=== PATIENT | female | born 1960 | race Caucasian/White ===

== ENCOUNTER 2017-06-14 10:03 | Outpatient (CLI) | payer BC | END 2017-06-14 10:04 | disposition home or self-care (01) | LOC: BICMAMMO 10:03 | PROVIDERS: ATTEND Chiropractor | DX: Z12.31 Encounter for screening mammogram for malignant neoplasm of breast (principal) | CPT/HCPCS: 77063; 77067 ==

== ENCOUNTER 2017-10-21 13:19 | Outpatient (CLI) | payer BC | END 2017-10-21 13:20 | disposition home or self-care (01) | LOC: BICMAMMO 13:19 | PROVIDERS: ATTEND Internal Medicine Rheumatology | DX: Z13.820 Encounter for screening for osteoporosis (principal); M85.80 Other specified disorders of bone density and structure, unspecified site | CPT/HCPCS: 77080 ==

== ENCOUNTER 2018-06-16 10:14 | Outpatient (CLI) | payer BC | END 2018-06-16 10:15 | disposition home or self-care (01) | LOC: BICMAMMO 10:14 | PROVIDERS: ATTEND Internal Medicine | DX: Z12.31 Encounter for screening mammogram for malignant neoplasm of breast (principal) | CPT/HCPCS: 77063; 77067 ==

== ENCOUNTER 2018-08-28 12:54 | Outpatient (CLI) | payer BC ==
--- NOTE | 2018-08-28 13:37 | ULT ---
THYROID ULTRASOUND: Indications: Neck swelling. FINDINGS: Both lobes of the thyroid are homogeneous and appear unremarkable. Both lobes are normal size. Right lobe measures 3.9 x 1.2 x 1.1 cm. Left lobe measures 2.9 x 0.8 x 0.9 cm. No mass or nodule seen. IMPRESSION: Unremarkable thyroid ultrasound. POS: [facility]
== END 2018-08-28 12:55 | disposition home or self-care (01) ==
LOC: BICULT 12:54
PROVIDERS: ATTEND Otolaryngology Plastic Surgery within the Head & Neck
DX: R22.1 Localized swelling, mass and lump, neck (principal)
CPT/HCPCS: 76536

== ENCOUNTER 2018-11-11 13:06 | Outpatient (CLI) | payer BC ==
--- NOTE | 2018-11-11 13:55 | BD ---
DEXA BONE DENSITY: HISTORY: A 58-year-old postmenopausal female. Screening study. COMPARISON: [facility] [place] 10/21/2017. FINDINGS: Lumbar Spine: BMD (g/cm2) L1 0.897 T-Score: -0.8, 0.4 L2 0.932 T-Score: -0.9, 0.6 L3 0.818 T-Score: -1.5, 0.0 L4 0.784 T-Score: -2.5,-1.0 L1-L4 0.877 T-Score: -1.5,-0.1 Femoral Neck: 0.615 T-Score: -2.1,-0.8 Total Femur: 0.975 T-Score: -1.2,-1.2 Impression: Lumbar spine: WHO classification osteopenia. Fracture risk is increased. Femoral neck: WHO classification is osteopenia. Ten-year fracture risk for a major osteoporotic frac ture is 80%. Ten-year fracture risk for hip fracture is 1.2%. POS: OFF
== END 2018-11-11 13:07 | disposition home or self-care (01) ==
LOC: BICMAMMO 13:06
PROVIDERS: ATTEND Internal Medicine Rheumatology
DX: M81.0 Age-related osteoporosis without current pathological fracture (principal); M85.89 Other specified disorders of bone density and structure, multiple sites
CPT/HCPCS: 77080

== ENCOUNTER 2019-07-16 08:55 | Outpatient (CLI) | payer BC ==
--- NOTE | 2019-07-16 12:42 | MMO ---
Bilateral MAMMO Bilat Screen [facility]. CLINICAL HISTORY: Patient is 59 years old and is seen for screening. The patient has no family history of breast cancer. The patient has no personal history of cancer. VIEWS: The views performed were: bilateral craniocaudal with tomosynthesis and bilateral mediolateral oblique with tomosynthesis. FILMS COMPARED: The present examination has been compared to prior imaging studies performed at [facility] on 01/11/2015, 01/17/2016, 06/14/2017 and 06/16/2018. This study has been interpreted with the assistance of computer-aided detection. MAMMOGRAM FINDINGS: The breasts are heterogeneously dense, which could obscure a lesion on mammography. There are no suspicious masses, suspicious calcifications, or new areas of architectural distortion. IMPRESSION: THERE IS NO MAMMOGRAPHIC EVIDENCE OF MALIGNANCY. A ROUTINE FOLLOW-UP MAMMOGRAM IN 1 YEAR IS RECOMMENDED. THE RESULTS OF THIS EXAM WERE SENT TO THE PATIENT. ACR BI-RADS Category 1 - Negative MAMMOGRAPHY NOTE: 1. A negative mammogram report should not delay a biopsy if a dominant of clinically suspicious mass is present. 2. Approximately 10% to 15% of breast cancers are not detected by mammography. 3. Adenosis and dense breasts may obscure an underlying neoplasm. Reported by: ADONAY LANGSTON MD Electonically Signed: [id number]
== END 2019-07-16 08:56 | disposition home or self-care (01) ==
LOC: BICMAMMO 08:55
PROVIDERS: ATTEND Internal Medicine
DX: Z12.31 Encounter for screening mammogram for malignant neoplasm of breast (principal)
CPT/HCPCS: 77063; 77067

== ENCOUNTER 2019-11-18 13:15 | Outpatient (CLI) | payer BC ==
--- NOTE | 2019-11-18 13:42 | BD ---
EXAM: DEXA bone density examination HISTORY: 59-year-old postmenopausal female for screening COMPARISON: 11/11/2018 FINDINGS: L1--bone mineral density 0.879 g/sq cm; T score -1.0 L2--bone mineral density 0.882 g/sq cm; T score -1.3 L3--bone mineral density 0.934 g/sq cm; T score -1.4 L4--bone mineral density 0.755 g/sq cm; T score -2.8 Total L1-L4--bone mineral density 0.857 g/sq cm; T score -1.7 Left femoral neck--bone mineral density0.615; T score -2.1 Total proximal left femur--bone mineral density 0.884; T score -0.5 IMPRESSION: Osteopenia. This patient has a 10 year WHO fracture risk of a major osteoporotic fracture of 8.2% and of a hip fracture of 1.2%. When compared to the prior examination, the bone density in the hip has increased 11% and the bone density in the spine has not changed significantly.
== END 2019-11-18 13:16 | disposition home or self-care (01) ==
LOC: BICMAMMO 13:15
PROVIDERS: ATTEND Internal Medicine Rheumatology
DX: M81.0 Age-related osteoporosis without current pathological fracture (principal); M85.89 Other specified disorders of bone density and structure, multiple sites
CPT/HCPCS: 77080

== ENCOUNTER 2020-10-17 12:44 | Outpatient (CLI) | payer BC | END 2020-10-17 12:45 | disposition home or self-care (01) | LOC: BICMAMMO 12:44 | PROVIDERS: ATTEND Internal Medicine | DX: Z12.31 Encounter for screening mammogram for malignant neoplasm of breast (principal) | CPT/HCPCS: 77063; 77067 ==

== ENCOUNTER 2020-12-09 13:39 | Outpatient (CLI) | payer BC | END 2020-12-09 13:40 | disposition home or self-care (01) | LOC: BICMAMMO 13:39 | PROVIDERS: ATTEND Internal Medicine Rheumatology | DX: M81.0 Age-related osteoporosis without current pathological fracture (principal); M85.851 Other specified disorders of bone density and structure, right thigh; M85.852 Other specified disorders of bone density and structure, left thigh | CPT/HCPCS: 77080 ==

== ENCOUNTER 2021-12-11 09:11 | Outpatient (CLI) | payer BC | END 2021-12-11 09:12 | disposition home or self-care (01) | LOC: BICMAMMO 09:11 | PROVIDERS: ATTEND Internal Medicine | DX: M81.0 Age-related osteoporosis without current pathological fracture (principal); M85.89 Other specified disorders of bone density and structure, multiple sites; M85.9 Disorder of bone density and structure, unspecified; R29.890 Loss of height; Z79.899 Other long term (current) drug therapy | CPT/HCPCS: 77080 ==